=== PATIENT | male | born 1950 ===

== ENCOUNTER 2022-08-01 08:32 | Outpatient (OUT) | payer MEDICARE, SELFPAY | END 2022-08-01 08:33 | disposition home or self-care (01) | LOC: WC 08:51 | PROVIDERS: PCP Family Medicine; Visit Provider Podiatrist Foot & Ankle Surgery | DX: Z53.9 Procedure and treatment not carried out, unspecified reason (principal) ==

== ENCOUNTER 2022-08-21 11:00 | Outpatient (OUT) | payer MEDICARE, SELFPAY ==
--- NOTE | 2022-08-21 11:29 | XR_ITS ---
[address] [address] Patient Name: GENEVIEVE FERNANDEZ MRN: [id number] date: 1950 Sex: M Assigned Patient Location: Current Patient Location: Accession/Order Number: [id number] Exam Date: 08/21/2022 11:29 Report Date: 08/21/2022 17:17 At the request of: RICHARD MARRUFO Procedure: XR foot LT min 3V PROCEDURE: XR foot LT min 3V HISTORY: LEFT FOOT PAIN COMPARISON: XR foot left 06/24/2022 FINDINGS: BONES:Cortical destruction along the medial and lateral margins of the head of the second metatarsal. Cortical thinning involving proximal articular surface of second proximal phalanx. SOFT TISSUES:Mild distal dorsal soft tissue swelling. Marked atherosclerotic disease. EFFUSION:None visible. OTHER: Negative. XR/XR foot LT min 3V IMPRESSION: 1. Progression of erosive changes of the head of the second metatarsal compatible with osteomyelitis. Electronically authenticated by: ASHUTOSH RAMIREZ Date: 08/21/2022 17:17
== END 2022-08-21 11:01 | disposition home or self-care (01) ==
LOC: WC 08-30 07:59
PROVIDERS: PCP Family Medicine; Visit Provider Podiatrist Foot & Ankle Surgery
DX: E11.69 Type 2 diabetes mellitus with other specified complication (principal); M86.672 Other chronic osteomyelitis, left ankle and foot; E11.65 Type 2 diabetes mellitus with hyperglycemia; I10 Essential (primary) hypertension
CPT/HCPCS: 73630; G0463

== ENCOUNTER 2022-09-13 13:42 | Outpatient (OUT) | payer MEDICARE, SELFPAY ==
--- NOTE | 2022-09-13 13:46 | XR_ITS ---
The [address] [address] Patient Name: GENEVIEVE FERNANDEZ MRN: [id number] date: 1950 Sex: M Assigned Patient Location: [facility] Current Patient Location: [facility] Accession/Order Number: [id number] Exam Date: 09/13/2022 14:45 Report Date: 09/13/2022 16:25 At the request of: RICHARD MARRUFO Procedure: XR chest 2V EXAM: XR chest 2V HISTORY: PRE OP EXAM COMPARISON: None. TECHNIQUE: PA and lateral views of the chest FINDINGS: There is no focal airspace consolidation. The lungs are hyperinflated. There are perihilar and bibasilar reticular opacities, likely represent scarring. The cardiomediastinal silhouette is not enlarged. There are mild calcific plaques at the aortic arch. No evidence of pleural effusion or pneumothorax are identified. No acute osseous abnormality. There are partially visualized postsurgical changes of lower cervical spine. XR/XR chest 2V IMPRESSION: No acute cardiopulmonary process. Lungs appear hyperinflated suggestive of obstructive lung disease. Electronically authenticated by: KERON KIRKPATRICK Date: 09/13/2022 16:25
--- NOTE | 2022-09-13 14:32 | PM.PRESUREVA ---
History of Present Illness History of Present Illness Chief complaint: osteomyelitis of left 2nd metatarsal Narrative: Patient presents for preadmission testing accompanied by his . Please see HPI from Dr. Bustillos dated 08/21/2022. Review of Systems ROS Narrative Please see ROS from Dr. Bustillos dated 08/21/2022. [facility] Medical History (Updated 09/13/22 @ 14:31 by Shirin Rogers NP) (05/2022) Surgical History (Updated 09/13/22 @ 14:20 by Shirin Rogers NP) Family History (Updated 09/13/22 @ 14:20 by Shirin Rogers NP) Other Bladder cancer Family history of diabetes mellitus Family history of heart disease Family history of myocardial infarction Family history of stroke Social History (Updated 09/13/22 @ 14:09 by Shirin Rogers NP) Within the past year, how often did you have a drink containing alcohol: 4 or more times a week Within the past year, how many standard drinks containing alcohol did you have on a typical day: 1 or 2 Total score: 0 Score interpretation: A score less than 4 is consistent with normal alcohol consumption. Smoking status: Former smoker Non-prescribed substance use: denies use Highest level of school completed/degree received: high school graduate Meds Home Medications and Allergies Home Medications Medication Instructions Recorded Confirmed Type aspirin 81 mg tablet,delayed 81 mg PO DAILY 09/13/22 09/13/22 History release (Adult Aspirin Regimen) carvedilol 12.5 mg tablet 12.5 mg PO BID 09/13/22 09/13/22 History clopidogrel 75 mg tablet (Plavix) 75 mg PO DAILY 09/13/22 09/13/22 History doxycycline hyclate 100 mg capsule 100 mg PO DAILY 09/13/22 09/13/22 History (Vibramycin) ferrous sulfate 325 mg (65 mg 325 mg PO DAILY 09/13/22 09/13/22 History iron) tablet (Feosol) hydrochlorothiazide 25 mg tablet 25 mg PO DAILY 09/13/22 09/13/22 History nitroglycerin 0.4 mg sublingual 0.4 mg sublingual Q5M 09/13/22 09/13/22 History tablet (Nitrostat) pravastatin 80 mg tablet 80 mg PO DAILY 09/13/22 09/13/22 History pregabalin 150 mg capsule (Lyrica) 150 mg PO BID 09/13/22 09/13/22 History sitagliptin phosphate 50 mg tablet 50 mg PO DAILY 09/13/22 09/13/22 History (Januvia) tamsulosin 0.4 mg capsule (Flomax) 0.4 mg PO DAILY 09/13/22 09/13/22 History Allergies Allergy/AdvReac Type Severity Reaction Status Date / Time No Known Drug Allergies Allergy Verified 09/13/22 14:06 Exam Narrative Exam Narrative: Constitutional: Awake, alert, comfortable, Chronically ill-appearing, Pale, nontoxic, interactive, vital signs as charted Head: Normocephalic, atraumatic Neck: Supple, normal appearance, normal range of motion, no meningeal signs, no lymphadenopathy Respiratory: No respiratory distress, breath sounds clear Cardiovascular: Regular rate and rhythm, strong and regular heart tones Psychiatric: Oriented ?3, normal affect Assessment and Plan Assessment and Plan (1) Osteomyelitis: Plan Amputation of left 2nd toe scheduled with Dr. Bustillos 09/16/2022.
[2022-09-13 15:07] LABS: Partial Thromboplastin Time 30.3 sec (22.3-36.2)
[2022-09-13 15:15] LABS: INR 0.98; Prothrombin Time 10.4 sec (9.0-11.6)
== END 2022-09-13 13:43 | disposition home or self-care (01) ==
PROVIDERS: PCP Nurse Practitioner Family; Visit Provider Podiatrist Foot & Ankle Surgery
DX: Z01.818 Encounter for other preprocedural examination (principal); Z01.812 Encounter for preprocedural laboratory examination; Z01.810 Encounter for preprocedural cardiovascular examination; M86.672 Other chronic osteomyelitis, left ankle and foot; E11.69 Type 2 diabetes mellitus with other specified complication; D64.9 Anemia, unspecified; N18.9 Chronic kidney disease, unspecified; E11.22 Type 2 diabetes mellitus with diabetic chronic kidney disease; I25.10 Atherosclerotic heart disease of native coronary artery without angina pectoris
CPT/HCPCS: 71046; 85610; 85730; G0463

== ENCOUNTER 2022-09-16 06:43 | Day surgery (SDC) | payer MEDICARE, SELFPAY ==
[2022-09-13 14:00] VITALS: BP 128/65; PULSE 59; RESP 14; TEMP 36.1; O2SAT 96; BMI 23.0
[2022-09-16] VITALS (11 sets, daily range): BP systolic 134–178; BP diastolic 74–99; PULSE 53–64; RESP 11–20; TEMP 36.2–36.6; O2SAT 94–98; BMI 23.0
[2022-09-16 07:13] LABS: Glucometer 136 mg/dL (74-106)
[2022-09-16] MEDS: LACTATED RINGER'S SOLUTION 1,000 ML 50 ML IV (07:30)
[2022-09-16] MEDS: CEFAZOLIN SODIUM/DEXTROSE,ISO 2 GM/50 ML PIGGYBACK IV (07:31)
[2022-09-16] MEDS: BUPIVACAINE HCL 0.5% PF 50 MG/10 ML VIAL INJ (07:58)
[2022-09-16] MEDS: VANCOMYCIN HCL 1,000 MG VIAL 1000 MG TOPICAL (08:45)
[2022-09-16 09:04] LABS: Glucometer 151 mg/dL (74-106)
--- NOTE | 2022-09-16 11:09 | PM.ORONB ---
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 bone of the 2nd metatarsal head and neck was soft and discolored. resection included the distal shaft where bone quality was within normal limits. No purulence or evidence of acute sign of infection. Bone quality of the 3rd metatarsal was within normal limits PROCEDURE IN DETAIL: Patient was identified in pre op and consent was reviewed. Correct side and site were identified and marked. Pre-op antibiotics were started. Patient was brought to OR suite and place on table in a supine position. General anesthesia was administered. Tourniquet applied. Operative extremity was prepped and draped in usual sterile fashion. Formal time-out was performed and the foot/ankle were exsanguinated and tourniquet inflated. An elliptical incision was placed on the 2nd toe base. Full-thickness incision was taken down to bone to the level of the metatarsophalangeal joint and all soft tissue attachments were released allowing disarticulation of the digit. The amputated digit was passed back table and sent for specimen. the elliptical incision was then extended proximally on the dorsal aspect of the foot and taken down to bone. Bone was grossly compromised and consistent with chronic osteomyelitis of the 2nd metatarsal head and neck while the shaft had normal bone color and quality. An oblique osteotomy directed from dorsal to plantar was performed of the 2nd metatarsal shaft. Then with additional sharp dissection the distal aspect of the 2nd metatarsal shaft including head/neck was used to release allowing this portion of the 2nd metatarsal to be resected which was passed the back table and sent as specimen.Tendinous structures were cut proximally. all questionable soft tissue was excised. Bone quality of the 3rd metatarsal appeared within normal limits.the tourniquet was deflated with a prompt hyperemic response. All remaining tissue perfused normally. Surgical site was irrigated with 3L of normal saline. A clean rongeur was used to obtain a proximal bone culture which was sent to microbiology. 1 g of vancomycin powder was placed into the surgical site prior to closure. Incision was then closed in one layer with nonabsorbable suture. a dry sterile dressing was then applied followed by a total contact cast using the TCC-EZ system accordingly. Patient tolerated procedure and anesthesia well and was transferred to the recovery room with vital signs stable. Following a period of postoperative monitoring he'll be discharged home under the care of his POSTOPERATIVE PLAN: Discharge home under family's care Post op instructions provided verbally and written prescription(s) were placed in chart - patient is to continue doxycycline and Bactrim was also prescribed partial heel weightbearing in cast Follow-up within 1 week Implants: 1 g vancomycin powder Anesthesia: MAC and local Surgeon: Pancho Bustillos Litigation Docket Manager: Lemuel Avila Estimated blood loss (mL): 25 Tourniquet time (min): 12 Pathology: other (2nd toe and distal 2nd metatarsal; clean/proximal 2nd metatarsal for culture) Condition: stable Disposition: PACU Preoperative Details Reason for procedure: patient is a 72-year-old male who was referred to us from [facility] for osteomyelitis of the 2nd metatarsal which was confirmed on MRI. Patient is had a history of draining sinus and wound left forefoot. He had been prescribed doxycycline but no prior cultures had been obtained. Patient is medically very complicated and at high risk for perioperative complications given a recent stent which was in July as well as recent diagnosis of colon cancer. After our initial consultation patient had his 1st visit with his oncologist who recommended performing his amputation as soon as possible prior to chemotherapy. Given the circumstances he was cleared by cardiology and Plavix was discontinued roughly 5 days ago. Patient is not had any acute signs of infection and today patient denies all systemic signs of infection. Patient wished to proceed with partial amputation of the 2nd ray.
== END 2022-09-16 10:10 | disposition home or self-care (01) ==
PROVIDERS: PCP Nurse Practitioner Family; Visit Provider Podiatrist Foot & Ankle Surgery
PROC: (CPT 28810; principal; 2022-09-16 07:30)
DX: E11.69 Type 2 diabetes mellitus with other specified complication (principal); M86.172 Other acute osteomyelitis, left ankle and foot; L08.9 Local infection of the skin and subcutaneous tissue, unspecified; Z87.891 Personal history of nicotine dependence; Z79.82 Long term (current) use of aspirin; Z79.899 Other long term (current) drug therapy; I25.10 Atherosclerotic heart disease of native coronary artery without angina pectoris; E11.22 Type 2 diabetes mellitus with diabetic chronic kidney disease; I12.9 Hypertensive chronic kidney disease with stage 1 through stage 4 chronic kidney disease, or unspecified chronic kidney disease; N18.31 Chronic kidney disease, stage 3a; E78.5 Hyperlipidemia, unspecified; Z98.61 Coronary angioplasty status; I71.40 Abdominal aortic aneurysm, without rupture, unspecified; Z86.73 Personal history of transient ischemic attack (TIA), and cerebral infarction without residual deficits
CPT/HCPCS: 28810; 36415; 82948; 87070; 87102; 87116; 87205; 87206; 88305; 88311; 99999; J2704; J3370

== ENCOUNTER 2022-09-20 11:38 | Outpatient (OUT) | payer MEDICARE, SELFPAY ==
--- NOTE | 2022-09-20 11:47 | XR_ITS ---
The [address] [address] Patient Name: GENEVIEVE FERNANDEZ MRN: [id number] date: 1950 Sex: M Assigned Patient Location: Current Patient Location: Accession/Order Number: [id number] Exam Date: 09/20/2022 11:46 Report Date: 09/21/2022 16:14 At the request of: RICHARD MARRUFO Procedure: XR foot LT min 3V EXAM: XR foot LT min 3V HISTORY: LEFT FOOT PAIN COMPARISON: 08/21/2022 TECHNIQUE: 3 view study FINDINGS: The second toe and distal aspect of the second metatarsal have been resected. The resection margin is sharply defined. Other bony structures are intact. Forefoot soft tissue swelling is noted. There are vascular calcifications. XR/XR foot LT min 3V IMPRESSION: Resection of the second toe and distal aspect of the second metatarsal, occurring in the interval since the prior study of 08/21/2022. Electronically authenticated by: Scott WATKINS Date: 09/21/2022 16:14
== END 2022-09-20 11:39 | disposition home or self-care (01) ==
LOC: WC 11:39
PROVIDERS: PCP Nurse Practitioner Family; Visit Provider Podiatrist Foot & Ankle Surgery
DX: M79.672 Pain in left foot (principal); Z89.422 Acquired absence of other left toe(s)
CPT/HCPCS: 29445; 73630

== ENCOUNTER 2022-09-27 11:19 | Outpatient (OUT) | payer MEDICARE, SELFPAY | END 2022-09-27 11:20 | disposition home or self-care (01) | LOC: WC 11:20 | PROVIDERS: PCP Nurse Practitioner Family; Visit Provider Podiatrist Foot & Ankle Surgery | DX: Z89.422 Acquired absence of other left toe(s) (principal) | CPT/HCPCS: 29445 ==

== ENCOUNTER 2022-10-04 11:28 | Outpatient (OUT) | payer MEDICARE, SELFPAY | END 2022-10-04 11:29 | disposition home or self-care (01) | LOC: WC 11:28 | PROVIDERS: PCP Nurse Practitioner Family; Visit Provider Podiatrist Foot & Ankle Surgery | DX: Z89.422 Acquired absence of other left toe(s) (principal) | CPT/HCPCS: G0463 ==